=== PATIENT | male | born 1970 ===

== ENCOUNTER 2021-11-27 18:21 | Inpatient (IN) | payer BC, SELFPAY ==
[~2021-11-27 18:21] MED LIST: Iopamidol-370 76% 500 ML 1 ML ONE; Magnevist 469MG/ML 20 ML VIAL ONE
[2021-11-27] MEDS ORDERED: Acetaminophen 325 MG TAB PO PRN (19:50)
[2021-11-27] MEDS ORDERED: hydrALAZINE 20 MG/ML VIAL SLOW IVP PRN ×3 (19:53→21:12)
[2021-11-27] MEDS ORDERED: Aspirin 325 MG TAB PO SCH (21:15)
[2021-11-27] MEDS: hydrALAZINE 20 MG/ML VIAL SLOW IVP PRN (21:29)
[2021-11-27] MEDS ORDERED: Ondansetron ODT 4 MG TAB PO PRN (21:43)
[2021-11-27] MEDS ORDERED: Electrolyte Replacement Protocol 1 EACH FS SCH (21:45)
[2021-11-27] MEDS ORDERED: Carvedilol 25 MG TAB PO SCH (22:01)
[2021-11-27] MEDS: Nicotine 14 MG PATCH TD SCH (22:53)
[2021-11-27] MEDS: Thiamine HCl 200 MG/2 ML VIAL SLOW IVP SCH (22:57)
[2021-11-27 23:07] VITALS: BMI 33.1
[2021-11-28] MEDS: chlordiazePOXIDE HCl 25 MG CAP PO SCH ×5 (00:34→23:52)
[2021-11-28 05:50] LABS: #Basophils 0.1 thou/uL (0.0-0.2); #Eosinphils 0.2 thou/uL (0.0-0.7); #Lymphocytes 1.4 thou/uL (1.20-3.40); #Monocytes 0.6 thou/uL (0.11-0.59); #Neutrophils 4.7 thou/uL (1.40-6.50); %Basophils 1.1 % (0.0-1.0); %Eosinophils 2.4 % (0.0-10.0); %Lymphocytes 20.9 % (21.0-51.0); %Monocytes 8.2 % (0.0-10.0); %Neutrophils 67.4 % (42.0-75.0); Hemoglobin 15.9 g/dL (14.0-18.0); Mean Corpuscular Hemoglobin 31.5 pg (27.0-31.0); Mean Corpuscular Volume 92.7 fL (78.0-98.0); Platelet Count 259 thou/uL (130-400); RBC Distribution Width 12.5 % (11.5-14.5); Red Blood Cell (RBC) Count 5.05 mill/uL (4.70-6.10); White Blood Cell (WBC) Count 6.9 thou/uL (4.8-10.8)
[2021-11-28 05:52] LABS: Hemoglobin A1c 5.2 % (4.0-6.0)
[2021-11-28 06:11] LABS: ALT (SGPT) 15 U/L (8-55); AST (SGOT) 12 U/L (5-34); Albumin 3.9 g/dL (3.5-5.0); Alkaline Phosphatase 84 U/L (40-110); Anion Gap 12 mmol/L (10-20); BUN (Urea Nitrogen) 12 mg/dL (8.4-25.7); Bilirubin, Total 0.8 mg/dL (0.2-1.2); Calc. Creatinine Clearance 93 mL/min (70-130); Calcium 8.8 mg/dL (7.8-10.44); Carbon Dioxide 26 mmol/L (22-29); Cardiac Risk 3.9 (Less than 4.5); Chloride 103 mmol/L (98-107); Cholesterol 210 mg/dl (< 200 Desired); Glucose 126 mg/dL (70-105); HDL Cholesterol 54 mg/dL (>60 Neg Risk); Iron 90 ug/dL (65-175); Iron Binding Capacity, Total 329 mcg/dL (261-462); LDL Cholesterol, Calculated 129 mg/dL; Magnesium 2.2 mg/dL (1.6-2.6); Phosphorus 3.5 mg/dL (2.3-4.7); Potassium 3.2 mmol/L (3.5-5.1); Protein, Total 6.9 g/dL (6.0-8.3); Sodium 138 mmol/L (136-145); Triglycerides 134 mg/dL (Less than 150)
[2021-11-28 06:13] LABS: Iron Binding Capacity, Total 325 mcg/dL (261-462)
[2021-11-28 06:14] LABS: Iron 90 ug/dL (65-175)
[2021-11-28 06:29] LABS: Ferritin 83.25 ng/mL (22-322); Thyroid Stimulating Hormone 1.3655 uIU/mL (0.35-4.94)
[2021-11-28] MEDS ORDERED: Potassium Chloride 20 MEQ TAB PO SCH ×2 (08:00→10:30)
[2021-11-28] MEDS ORDERED: DIMETHYL FUMARATE 240 MG PO SCH ×2 (09:00)
[2021-11-28] MEDS ORDERED: Aspirin 81 mg Enteric Coated Tablet PO SCH (09:00)
[2021-11-28] MEDS ORDERED: Carvedilol 25 MG TAB PO SCH (09:00)
[2021-11-28] MEDS: Aspirin 325 mg Enteric Coated Tablet PO SCH (09:11)
[2021-11-28] MEDS: Folic Acid 1 MG TAB PO SCH (09:11)
[2021-11-28] MEDS: Multivit, Therapeutic 1 TAB PO SCH (09:11)
[2021-11-28] MEDS ORDERED: Clopidogrel Bisulfate 300 MG TAB PO SCH (10:30)
[2021-11-28 12:42] LABS: INR-International Normal Ratio 1.1; Prothrombin Time 14.2 sec (12.0-14.7)
[2021-11-28 12:43] LABS: PTT 27.6 sec (22.9-36.1)
[2021-11-28 12:45] LABS: D-Dimer Test Less than 0.27 *mcg/mL (0.27-0.43)
[2021-11-28 13:25] LABS: Potassium 3.5 mmol/L (3.5-5.1)
[2021-11-28] MEDS: Carvedilol 25 MG TAB PO SCH (17:16)
[2021-11-28] MEDS: Thiamine HCl 200 MG/2 ML VIAL SLOW IVP SCH (21:24)
[2021-11-28] MEDS: Atorvastatin Calcium 40 MG TAB PO SCH (21:24)
[2021-11-28] MEDS: Nicotine 14 MG PATCH TD SCH (21:25)
[2021-11-28] MEDS: hydrALAZINE 20 MG/ML VIAL SLOW IVP PRN (21:25)
[2021-11-29] MEDS: hydrALAZINE 20 MG/ML VIAL SLOW IVP PRN ×2 (00:18→15:01)
[2021-11-29] MEDS ORDERED: Labetalol HCl 100 MG/20 ML VIAL ONE (04:20)
[2021-11-29] MEDS ORDERED: Labetalol HCl 100 MG/20 ML VIAL SLOW IVP PRN (04:35)
[2021-11-29] MEDS ORDERED: Labetalol HCl 100 MG/20 ML VIAL SLOW IVP SCH (04:45)
[2021-11-29] MEDS: chlordiazePOXIDE HCl 25 MG CAP PO SCH ×3 (05:10→21:30)
[2021-11-29] MEDS: Multivit, Therapeutic 1 TAB PO SCH (08:42)
[2021-11-29] MEDS: Folic Acid 1 MG TAB PO SCH (08:42)
[2021-11-29] MEDS: Aspirin 325 mg Enteric Coated Tablet PO SCH (08:42)
[2021-11-29] MEDS: Amlodipine 5 MG TAB PO SCH (08:42)
[2021-11-29] MEDS: Carvedilol 25 MG TAB PO SCH ×2 (08:43→16:50)
[2021-11-29] MEDS: Losartan 25 MG TAB PO SCH (08:43)
[2021-11-29] MEDS: Clopidogrel Bisulfate 75 MG TAB PO SCH (08:55)
[2021-11-29] MEDS ORDERED: Amlodipine 5 MG TAB PO SCH (12:15)
[2021-11-29] MEDS: Thiamine HCl 200 MG/2 ML VIAL SLOW IVP SCH (21:31)
[2021-11-29] MEDS: Atorvastatin Calcium 40 MG TAB PO SCH (21:31)
[2021-11-29] MEDS: Nicotine 14 MG PATCH TD SCH (22:15)
[2021-11-30 05:49] LABS: Anion Gap 10 mmol/L (10-20); BUN (Urea Nitrogen) 16 mg/dL (8.4-25.7); Calc. Creatinine Clearance 83 mL/min (70-130); Calcium 8.6 mg/dL (7.8-10.44); Carbon Dioxide 26 mmol/L (22-29); Chloride 106 mmol/L (98-107); Glucose 122 mg/dL (70-105); Potassium 3.3 mmol/L (3.5-5.1); Sodium 139 mmol/L (136-145)
[2021-11-30] MEDS: chlordiazePOXIDE HCl 25 MG CAP PO SCH ×3 (06:35→21:46)
[2021-11-30] MEDS ORDERED: Potassium Chloride 20 MEQ TAB PO SCH ×2 (08:00→09:45)
[2021-11-30] MEDS: Aspirin 81 mg Enteric Coated Tablet PO SCH (08:32)
[2021-11-30] MEDS: Amlodipine 10 MG TAB PO SCH (08:33)
[2021-11-30] MEDS: Multivit, Therapeutic 1 TAB PO SCH (08:33)
[2021-11-30] MEDS: Losartan 25 MG TAB PO SCH (08:33)
[2021-11-30] MEDS: Folic Acid 1 MG TAB PO SCH (08:33)
[2021-11-30] MEDS: Clopidogrel Bisulfate 75 MG TAB PO SCH (08:34)
[2021-11-30] MEDS: Carvedilol 25 MG TAB PO SCH ×2 (08:34→17:47)
[2021-11-30] MEDS ORDERED: Hydrochlorothiazide 25 MG TAB PO SCH ×4 (09:00→14:45)
[2021-11-30] MEDS: Atorvastatin Calcium 40 MG TAB PO SCH (21:46)
[2021-11-30] MEDS: Thiamine 100 MG TAB PO SCH (21:46)
[2021-11-30] MEDS: Nicotine 14 MG PATCH TD SCH (21:46)
[2021-12-01] MEDS: chlordiazePOXIDE HCl 25 MG CAP PO SCH (05:09)
[2021-12-01 08:10] LABS: Anion Gap 11 mmol/L (10-20); BUN (Urea Nitrogen) 15 mg/dL (8.4-25.7); Calc. Creatinine Clearance 75 mL/min (70-130); Calcium 9.3 mg/dL (7.8-10.44); Carbon Dioxide 28 mmol/L (22-29); Chloride 102 mmol/L (98-107); Glucose 128 mg/dL (70-105); Potassium 3.4 mmol/L (3.5-5.1); Sodium 138 mmol/L (136-145)
[2021-12-01] MEDS: Clopidogrel Bisulfate 75 MG TAB PO SCH (08:51)
[2021-12-01] MEDS: Carvedilol 25 MG TAB PO SCH ×2 (08:51→16:29)
[2021-12-01] MEDS: Multivit, Therapeutic 1 TAB PO SCH (08:51)
[2021-12-01] MEDS: Folic Acid 1 MG TAB PO SCH (08:51)
[2021-12-01] MEDS: Aspirin 81 mg Enteric Coated Tablet PO SCH (08:52)
[2021-12-01] MEDS: Amlodipine 10 MG TAB PO SCH (08:52)
[2021-12-01] MEDS: Losartan 25 MG TAB PO SCH (08:52)
[2021-12-01] MEDS: Hydrochlorothiazide 25 MG TAB PO SCH (08:52)
[2021-12-01] MEDS ORDERED: Potassium Chloride 20 MEQ TAB PO SCH (09:00)
[2021-12-01] MEDS ORDERED: Spironolactone 25 MG TAB PO SCH ×2 (10:30→21:00)
[2021-12-01 13:51] LABS: Potassium 3.6 mmol/L (3.5-5.1)
[2021-12-01] MEDS: Atorvastatin Calcium 40 MG TAB PO SCH (20:47)
[2021-12-01] MEDS: Thiamine 100 MG TAB PO SCH (20:48)
[2021-12-01] MEDS: Nicotine 14 MG PATCH TD SCH (20:48)
[2021-12-01] MEDS ORDERED: chlordiazePOXIDE HCl 25 MG CAP PO SCH (21:30)
[2021-12-02 05:53] LABS: Anion Gap 11 mmol/L (10-20); BUN (Urea Nitrogen) 17 mg/dL (8.4-25.7); Calc. Creatinine Clearance 74 mL/min (70-130); Calcium 9.2 mg/dL (7.8-10.44); Carbon Dioxide 28 mmol/L (22-29); Chloride 101 mmol/L (98-107); Glucose 154 mg/dL (70-105); Potassium 3.3 mmol/L (3.5-5.1); Sodium 137 mmol/L (136-145)
[2021-12-02] MEDS ORDERED: Spironolactone 25 MG TAB PO SCH (08:00)
[2021-12-02] MEDS ORDERED: Potassium Chloride 20 MEQ TAB PO SCH (08:00)
[2021-12-02] MEDS: Multivit, Therapeutic 1 TAB PO SCH (08:37)
[2021-12-02] MEDS: Carvedilol 25 MG TAB PO SCH (08:37)
[2021-12-02] MEDS: Clopidogrel Bisulfate 75 MG TAB PO SCH (08:37)
[2021-12-02] MEDS: Losartan 25 MG TAB PO SCH (08:37)
[2021-12-02] MEDS: Aspirin 81 mg Enteric Coated Tablet PO SCH (08:37)
[2021-12-02] MEDS: Hydrochlorothiazide 25 MG TAB PO SCH (08:37)
[2021-12-02] MEDS: Amlodipine 10 MG TAB PO SCH (08:37)
[2021-12-02] MEDS: Folic Acid 1 MG TAB PO SCH (08:37)
[2021-12-02 14:37] VITALS: BP 178/106
[2021-12-02 15:44] VITALS: TEMP 97.7
[2021-12-03 12:34] LABS: Protein C Activity 114 % (78-152)
[2021-12-03 12:35] LABS: Factor VIII Test 106.5 % ACTIVE (56-157)
[2021-12-04 11:51] LABS: Cardiolipin IgA Ab 1.3 APL-U/mL (<14 Negative); Cardiolipin IgG Ab 0.8 GPL-U/mL (<10 Negative); Cardiolipin IgM Ab Less than 0.8 MPL-U/mL (<10 Negative); EliA APS New Method **** NEW METHOD ****
== END 2021-12-02 16:00 | DRG 65 ==
LOC: NEURO 19:43 → INTOOBSV 19:43 → OBSVTOIN 22:02
PROVIDERS: ADMIT Emergency Medicine; ATTEND Family Medicine
DX: I63.81 Other cerebral infarction due to occlusion or stenosis of small artery (principal); R29.700 NIHSS score 0; I16.1 Hypertensive emergency; G35 Multiple sclerosis; I10 Essential (primary) hypertension; E78.5 Hyperlipidemia, unspecified; F10.10 Alcohol abuse, uncomplicated; G83.21 Monoplegia of upper limb affecting right dominant side; F17.290 Nicotine dependence, other tobacco product, uncomplicated; E86.0 Dehydration; D75.1 Secondary polycythemia; Z79.899 Other long term (current) drug therapy; Z98.890 Other specified postprocedural states; Z83.3 Family history of diabetes mellitus; Z82.49 Family history of ischemic heart disease and other diseases of the circulatory system; Z80.8 Family history of malignant neoplasm of other organs or systems
CPT/HCPCS: 36415; 70450; 70496; 70498; 70553; 76770; 80048; 80053; 80061; 82088; 82728; 83036; 83090; 83540; 83550; 83735; 84100; 84244; 84443; 85025; 85060; 85240; 85300; 85303; 85305; 85307; 85379; 85598; 85610; 85730; 86147; 93306; 93976; 96374; 96376; A9579; G0378; J0360; J3411; Q9967